=== PATIENT | male | born 1945 | race Caucasian/White ===

== ENCOUNTER 2019-10-08 09:18 | Outpatient (CLI) | payer MEDICARE ==
[2019-10-08] MEDS ORDERED: DOXA8TAB63 PO (09:42)
[2019-10-08] MEDS ORDERED: DOCU-131 PO (09:42)
[2019-10-08] MEDS ORDERED: BENA40TA3 PO (09:42)
[2019-10-08] MEDS ORDERED: MULT-658 PO (10:01)
[2019-10-08] MEDS ORDERED: PSYL1PAC9 PO (10:01)
[2019-10-08 10:29] LABS: ALANINE AMINOTRANSFERASE 26 U/L (12-78); ALBUMIN 3.8 g/dL (3.4-5.0); ANION GAP 7 mmol/L (5-15); CALCIUM 9.1 mg/dL (8.5-10.1); CHLORIDE 103 mmol/L (98-107); CREATININE 0.92 mg/dL (0.7-1.3)
[2019-10-08 10:31] LABS: ALKALINE PHOSPHATASE 48 U/L (45-117); BILIRUBIN,TOTAL 0.6 mg/dL (0.2-1.0); TOTAL PROTEIN 7.8 g/dL (6.4-8.2)
== END 2019-10-08 23:59 | disposition home or self-care (01) ==
LOC: STAR 09:18
PROVIDERS: ATTEND Surgery
DX: Z01.818 Encounter for other preprocedural examination (principal); K40.90 Unilateral inguinal hernia, without obstruction or gangrene, not specified as recurrent; R00.1 Bradycardia, unspecified
CPT/HCPCS: 36415; 80053; 93005

== ENCOUNTER → 2020-01-15 | Outpatient (CLI) | payer MEDICARE ==
[~2020-01-15] MED LIST: BENA40TA3 PO; DOCU-131 PO; DOXA8TAB63 PO; MULT-658 PO; PSYL1PAC9 PO
[2020-01-15 12:32] LABS: ALANINE AMINOTRANSFERASE 30 U/L (12-78); ALBUMIN 3.9 g/dL (3.4-5.0); ANION GAP 7 mmol/L (5-15); CALCIUM 9.3 mg/dL (8.5-10.1); CHLORIDE 105 mmol/L (98-107); CREATININE 0.86 mg/dL (0.7-1.3)
[2020-01-15 12:35] LABS: ALKALINE PHOSPHATASE 46 U/L (45-117); BILIRUBIN,TOTAL 0.6 mg/dL (0.2-1.0); TOTAL PROTEIN 7.6 g/dL (6.4-8.2)
== END | disposition home or self-care (01) ==
LOC: STAR 11:06
PROVIDERS: ATTEND Surgery
DX: Z01.818 Encounter for other preprocedural examination (principal); K40.90 Unilateral inguinal hernia, without obstruction or gangrene, not specified as recurrent
CPT/HCPCS: 36415; 80053; 93005

== ENCOUNTER 2020-01-22 09:29 | Day surgery (SDC) | payer MEDICARE ==
[~2020-01-22] VITALS: Ht 172.7 cm; Wt 92.3 kg
[2020-01-22] MEDS ORDERED: LACTATED RINGERS 1,000 ML IV SCH (10:23)
[2020-01-22] MEDS ORDERED: CHLORHEXIDINE 15 ML UDC MM ONE (10:30)
[2020-01-22] MEDS ORDERED: CHLORHEXIDINE 15 ML UDC ONE (10:33)
[2020-01-22] MEDS ORDERED: BUPIVACAINE/PF-EPI 0.5% 1:200K ONE (10:36)
[2020-01-22] MEDS ORDERED: FENTANYL PF 100 MCG/2ML ONE ×2 (12:31→13:02)
[2020-01-22] MEDS ORDERED: PROPOFOL 10 MG/ML, 20ML ONE ×2 (12:32)
[2020-01-22] MEDS ORDERED: LIDOCAINE-MPF 2% ,5ML ONE (12:32)
[2020-01-22] MEDS ORDERED: SUCCINYLCHOLINE 20 MG/ML, 10ML ONE (12:32)
[2020-01-22] MEDS ORDERED: ONDANSETRON 2MG/ML, 2ML ONE ×2 (12:58)
[2020-01-22] MEDS ORDERED: DEXAMETHASONE 4 MG/ML, 1ML ONE ×3 (12:58)
[2020-01-22] MEDS ORDERED: GLYCOPYRROLATE 0.2MG/1ML, 5ML ONE (13:06)
[2020-01-22] MEDS ORDERED: FENTANYL PF 100 MCG/2ML IV PRN (13:30)
[2020-01-22] MEDS ORDERED: ONDANSETRON 2MG/ML, 2ML IVPush PRN (13:30)
[2020-01-22] MEDS ORDERED: OXYcodone 5 MG/5 ML ORAL.SOL UDC PO PRN (13:30)
== END 2020-01-22 17:40 | disposition home or self-care (01) ==
LOC: OUT 09:29
PROVIDERS: ATTEND Surgery
DX: K40.30 Unilateral inguinal hernia, with obstruction, without gangrene, not specified as recurrent (principal); Z11.59 Encounter for screening for other viral diseases; I69.354 Hemiplegia and hemiparesis following cerebral infarction affecting left non-dominant side; I10 Essential (primary) hypertension; K21.9 Gastro-esophageal reflux disease without esophagitis; M19.90 Unspecified osteoarthritis, unspecified site; Z79.899 Other long term (current) drug therapy
CPT/HCPCS: 49507; C1781; J0330; J1100; J2405; J2704; J3010; J7120; U0001

== ENCOUNTER 2020-05-21 07:30 | Day surgery (SDC) | payer MEDICARE ==
[2020-05-18 10:48] LABS: ALANINE AMINOTRANSFERASE 28 U/L (12-78); ALBUMIN 3.8 g/dL (3.4-5.0); ANION GAP 5 mmol/L (5-15); CALCIUM 9.3 mg/dL (8.5-10.1); CHLORIDE 106 mmol/L (98-107); CREATININE 0.92 mg/dL (0.7-1.3)
[2020-05-18 10:50] LABS: ALKALINE PHOSPHATASE 50 U/L (45-117); BILIRUBIN,TOTAL 0.4 mg/dL (0.2-1.0); TOTAL PROTEIN 7.5 g/dL (6.4-8.2)
[~2020-05-21] VITALS: Ht 172.7 cm; Wt 92.2 kg
[~2020-05-21 07:30] MED LIST changes: +BACITRACIN 50,000 UNIT ONE; +BUPIVACAINE/PF 0.5% ONE; +EPINEPHRINE 1 MG/ML, 1ML ONE
[2020-05-21] MEDS ORDERED: CHLORHEXIDINE 15 ML UDC MM STA (08:06)
[2020-05-21 08:23] VITALS: BP 137/80
[2020-05-21] MEDS ORDERED: CHLORHEXIDINE 15 ML UDC ONE (08:28)
[2020-05-21] MEDS ORDERED: LACTATED RINGERS 1,000 ML IV SCH (08:30)
[2020-05-21] MEDS ORDERED: FENTANYL PF 100 MCG/2ML ONE (09:24)
[2020-05-21] MEDS ORDERED: MIDAZOLAM 1 MG/ML, 2ML ONE (09:24)
[2020-05-21] MEDS ORDERED: BUPIVACAINE/PF-EPI 0.5% 1:200K INFIL ONE (09:55)
[2020-05-21] MEDS ORDERED: ONDANSETRON 2MG/ML, 2ML ONE (11:14)
[2020-05-21] MEDS ORDERED: NEOSTIGMINE 1 MG/ML, 10ML ONE (11:14)
[2020-05-21] MEDS ORDERED: ROCURONIUM 10MG/ML,5ML ONE (11:14)
[2020-05-21] MEDS ORDERED: CEFAZOLIN 1,000 MG ONE (11:14)
[2020-05-21] MEDS ORDERED: DEXAMETHASONE 4 MG/ML, 1ML ONE (11:14)
[2020-05-21] MEDS ORDERED: PROPOFOL 10 MG/ML, 20ML ONE (11:14)
[2020-05-21] MEDS ORDERED: SUCCINYLCHOLINE 20 MG/ML, 10ML ONE (11:14)
[2020-05-21] MEDS ORDERED: GLYCOPYRROLATE 0.2MG/1ML, 5ML ONE (11:14)
[2020-05-21] MEDS ORDERED: ACETAMINOPHEN 650 MG/20.3 ML UDC ONE (11:35)
[2020-05-21] MEDS ORDERED: MEPERIDINE/PF 25MG/ML,1ML ONE (11:36)
[2020-05-21] MEDS ORDERED: OXYcodone 5 MG/5 ML ORAL.SOL UDC ONE (11:36)
[2020-05-21] MEDS ORDERED: FENTANYL PF 100 MCG/2ML IV PRN (12:00)
[2020-05-21] MEDS ORDERED: OXYcodone 5 MG/5 ML ORAL.SOL UDC PO PRN (12:00)
[2020-05-21] MEDS ORDERED: MEPERIDINE/PF 25MG/0.5ML IVPush PRN (12:00)
[2020-05-21] MEDS ORDERED: HYDROmorphone 1 MG/ML, 1ML INJ IVPush PRN (12:00)
[2020-05-21] MEDS ORDERED: ACETAMINOPHEN 325 MG TABLET PO PRN (12:00)
[2020-05-21] MEDS ORDERED: PROMETHAZINE 25 MG/ML, 1ML IVPush PRN (12:00)
[2020-05-21] MEDS ORDERED: MIDAZOLAM 1 MG/ML, 2ML IV PRN (12:00)
[2020-05-21] MEDS ORDERED: ONDANSETRON 2MG/ML, 2ML IVPush PRN (12:00)
[2020-05-21] MEDS ORDERED: DIPHENHYDRAMINE 50 MG/ML, 1ML IVPush PRN (12:00)
== END 2020-05-21 15:40 | disposition home or self-care (01) ==
LOC: OR 07:30
PROVIDERS: ATTEND Surgery
DX: K40.30 Unilateral inguinal hernia, with obstruction, without gangrene, not specified as recurrent (principal); I10 Essential (primary) hypertension; Z79.899 Other long term (current) drug therapy
CPT/HCPCS: 36415; 49507; 80053; 87635; 93005; C1781; J0171; J0330; J0690; J1100; J2175; J2250; J2405; J2704; J2710; J3010; J7120